=== PATIENT | male | born 1985 | race Caucasian/White ===

== ENCOUNTER 2021-04-22 19:20 | Emergency (ER) | payer MEDICAID ==
[2021-04-22] MEDS ORDERED: Sodium Chloride 0.9% 10 ML Syringe FLUSH PRN (19:52)
[2021-04-22] MEDS ORDERED: VANCOmycin 1.75 GM/350 ML 1.75 GM in Premix Bag 1 BAG IV ONE (19:53)
--- NOTE | 2021-04-22 20:04 | EDM.PDOC ---
ED HPI GENERAL MEDICAL PROBLEM - General Chief Complaint: ENT Problem Stated Complaint: Face pain Time Seen by Provider: 04/22/21 19:46 Source of Information: Reports: Patient - History of Present Illness INITIAL COMMENTS - FREE TEXT/NARRATIVE: Jeff is a 36 y/o male who presents to the ER with complaints of left sided facial swelling that started about 4 days ago. He saw a dentist in [place], [place] and was placed on Amoxicillin on 04/19/21. Today he reported increased swelling and returned to see the dentist again who advised he come to the ER. Dentist does need to extract several teeth and the patient was referred to [facility]. No fevers. Patient reports increased pain and can hardly open his mouth. Swelling had now increased down into the neck region over the last day. - Related Data Allergies Allergy/AdvReac Type Severity Reaction Status Date / Time peanut Allergy Anaphylactic Verified 04/22/21 19:23 Shock Home Meds: Home Meds Clindamycin HCl 300 mg PO TID #30 capsule 04/22/21 [Rx] metroNIDAZOLE [Metronidazole] 500 mg PO TID #30 tablet 04/22/21 [Rx] Review of Systems - Review of Systems Review Of Systems: See Below Constitutional: Reports: No Symptoms Eyes: Reports: No Symptoms Ears: Reports: No Symptoms Nose: Reports: No Symptoms Mouth/Throat: Reports: Pain, Other (Dental infection/abscess) Respiratory: Reports: No Symptoms Cardiovascular: Reports: No Symptoms GI/Abdominal: Reports: No Symptoms Genitourinary: Reports: No Symptoms Musculoskeletal: Reports: No Symptoms Skin: Reports: No Symptoms Neurological: Reports: No Symptoms Psychiatric: Reports: No Symptoms ED EXAM, GENERAL - Physical Exam Exam: See Below General Appearance: Alert, WD/WN, No Apparent Distress (Adult male.) Ears: Normal External Exam, Normal Canal, Hearing Grossly Normal Nose: Normal Inspection Throat/Mouth: Other (Face is swollen on left side of face, slightly firm adn warm to touch. Multiple broken and decayed teeth noted, unable to open mouth very far, +halitosis.) Neck: Other (Swelling palpated from left ceek region down into left neck region.) Respiratory/Chest: No Respiratory Distress, Lungs Clear Cardiovascular: Normal Peripheral Pulses, Regular Rate, Rhythm GI/Abdominal: Normal Bowel Sounds, Soft Extremities: Normal Inspection, Normal Capillary Refill Neurological: Alert, Oriented, CN II-XII Intact, Normal Cognition Psychiatric: Normal Affect Skin Exam: Warm, Dry, Normal Color, No Rash Course - Vital Signs Text/Narrative:: 1944 The patient was seen by the RISK CONTROL ANALYST. Labs ordered. CT ordered of MF and Soft Tissue Neck region sure to extensive swelling. IV started. 2135 Labs reviewed. Note WBC=14.4, Lactic Acid=0.9. CRP=15.0; CMP BUN=22, Field Human Resources Manager=1.23, Azltxyq=039. Radiologist called report to RISK CONTROL ANALYST-CT Soft Tissue Neck=no abscess, but surrounding cellulitis, dental caries present (See final report). Ceftriaxone 2gm IVP ordered. Will place patient on Clindamycin and Flagyl and have him contact [facility] as soon as possible to get in for referral. Written instructions were given and he left the ER in stable condition. - Orders/Labs/Meds Orders: Active Orders 24 hr Category Date Time Status Soft Tissue Neck w Cont [CT] Stat Exams 04/22/21 19:52 Taken CULTURE BLOOD [BC] Stat Lab 04/22/21 20:25 Received CULTURE BLOOD [BC] Stat Lab 04/22/21 20:25 Received Sodium Chloride 0.9% [Saline Flush] Med 04/22/21 19:52 Active 10 ml FLUSH ASDIRECTED PRN Blood Culture x2 Reflex Set [OM.PC] Stat Oth 04/22/21 19:52 Ordered Saline Lock Insert [OM.PC] Stat Oth 04/22/21 19:52 Ordered Medication Orders Sodium Chloride (Sodium Chloride 0.9% 10 Ml Syringe) 10 ml FLUSH ASDIRECTED PRN PRN Reason: Keep Vein Open Labs: Laboratory Tests 04/22/21 04/22/21 04/22/21 Range/Units 20:25 20:25 20:25 WBC 14.4 H (4.0-10.2) K/uL RBC 4.60 (4.33-5.41) M/uL Hgb 15.0 (13.1-16.8) g/dL Hct 43.6 (39.0-49.0) % MCV 94.8 (84.0-98.0) fL MCH 32.6 (28.2-33.3) pg MCHC 34.4 (31.7-36.0) g/dL RDW 13.3 (11.2-14.1) % Plt Count 369 H (150-350) K/uL Neut % (Auto) 75.3 (45.0-80.0) % Lymph % (Auto) 14.7 (10.0-50.0) % [place] % (Auto) 9.2 (2.0-14.0) % Eos % (Auto) 0.7 (0.0-5.0) % Baso % (Auto) 0.1 (0.0-2.0) % Neut # (Auto) 10.83 H (1.40-7.00) K/uL Lymph # (Auto) 2.11 (0.50-3.50) K/uL [place] # (Auto) 1.32 H (0.00-1.00) K/uL Eos # (Auto) 0.10 (0.00-0.50) K/uL Baso # (Auto) 0.02 (0.00-0.20) K/uL Sodium 135 L (136-145) mmol/L Potassium 4.3 (3.5-5.1) mmol/L Chloride 98 (98-107) mmol/L Carbon Dioxide 24.5 (21.0-32.0) mmol/L Anion Gap 16.8 H (7-15) meq/L BUN 22 H (7-18) mg/dL Creatinine 1.23 H (0.51-1.17) mg/dL Est Cr Clr Drug Dosing TNP Estimated GFR (MDRD) > 60 mL/min Glucose 340 H (70-99) mg/dL Lactic Acid 0.9 (0.4-2.0) mmol/L Calcium 9.1 (8.5-10.1) mg/dL Total Bilirubin 0.5 (0.2-1.0) mg/dL AST 16 (15-37) U/L ALT 29 (12-78) U/L Alkaline Phosphatase 175 H (46-116) IU/L C-Reactive Protein 15.0 H (<=0.9) mg/dL Total Protein 8.1 (6.4-8.2) g/dL Albumin 3.2 L (3.4-5.0) g/dL Meds: Medications Generic Name Dose Route Start Last Admin Trade Name Freq PRN Reason Stop Dose Admin Sodium Chloride 10 ml 04/22/21 19:52 Sodium Chloride 0.9% 10 Ml Syringe FLUSH ASDIRECTED PRN Keep Vein Open Discontinued Medications Generic Name Dose Route Start Last Admin Trade Name Augie PRN Reason Stop Dose Admin Ceftriaxone Sodium 2 gm 04/22/21 21:23 04/22/21 21:32 Ceftriaxone 2 Gm Vial IVPUSH 04/22/21 21:24 2 gm ONETIME ONE Administration Vancomycin HCl 1.75 gm/ Premix 350 mls @ 200 mls/hr 04/22/21 19:53 IV 04/22/21 21:37 STAT ONE Ceftriaxone Sodium 2 gm/ 100 mls @ 200 mls/hr 04/22/21 20:09 Sodium Chloride IV 04/22/21 20:38 ONETIME ONE Iopamidol 100 ml 04/22/21 20:29 04/22/21 20:59 Iopamidol 612 Mg/Ml 100 Ml Bottle IVPUSH 04/22/21 20:30 100 ml ONETIME ONE Administration - Radiology Interpretation Free Text/Narrative:: CT Soft Tissue Neck-no drainable abscess, surrounding cellulitis (See final report) Departure - Departure Time of Disposition: 21:39 Disposition: Home, Self-Care 01 Clinical Impression: Dental infection, Dental caries, Abscessed tooth, Facial cellulitis - Discharge Information Prescriptions: Clindamycin HCl 300 mg PO TID #30 capsule metroNIDAZOLE [Metronidazole] 500 mg PO TID #30 tablet Instructions: Dental Abscess, Cellulitis, Adult Forms: ED Department Discharge Additional Instructions: -Clindamycin 300mg oral every 8 hours x 10 days #30(Rx) -Metronidiazole 500mg oral 3x day for 10 days #30(Rx) -Continue ibuprofen/acetaminophen as needed for pain -Follow up with your dentist for further meds -Contact the [facility] Surgeon office on Sunday -Return to the ER as needed or see your PCP - Problem List & Annotations (1) Abscessed tooth SNOMED Code(s): 378006716 Code(s): K04.7 - PERIAPICAL ABSCESS WITHOUT SINUS Status: Acute (2) Dental caries SNOMED Code(s): 80425570 Code(s): K02.9 - DENTAL CARIES, UNSPECIFIED Status: Acute (3) Dental infection SNOMED Code(s): 049185963 Code(s): K04.7 - PERIAPICAL ABSCESS WITHOUT SINUS Status: Acute (4) Facial cellulitis SNOMED Code(s): 514758524 Code(s): L03.211 - CELLULITIS OF FACE Status: Acute Annotation/Comment:: Labs done. Note WBC=14.4, CRP=15.0, afebrile. Ceftriaxone 2gm IVP. Will send home on Clindamycin and Flagyl. - Problem List Review Problem List Initiated/Reviewed/Updated: Yes - My Orders Last 24 Hours: My Active Orders 04/22/21 19:52 Soft Tissue Neck w Cont [CT] Stat Sodium Chloride 0.9% [Saline Flush] 10 ml FLUSH ASDIRECTED PRN Blood Culture x2 Reflex Set [OM.PC] Stat Saline Lock Insert [OM.PC] Stat 04/22/21 20:25 CULTURE BLOOD [BC] Stat CULTURE BLOOD [BC] Stat - Assessment/Plan Last 24 Hours: My Active Orders 04/22/21 19:52 Soft Tissue Neck w Cont [CT] Stat Sodium Chloride 0.9% [Saline Flush] 10 ml FLUSH ASDIRECTED PRN Blood Culture x2 Reflex Set [OM.PC] Stat Saline Lock Insert [OM.PC] Stat 04/22/21 20:25 CULTURE BLOOD [BC] Stat CULTURE BLOOD [BC] Stat Plan: See above
[2021-04-22] MEDS ORDERED: cefTRIAXone 2 GM in Sodium Chloride 0.9% 100 ML IV ONE (20:09)
[2021-04-22] MEDS: Iopamidol 612 MG/ML 100 ML Bottle IVPUSH ONE (20:59)
[2021-04-22 21:05] LABS: ANION GAP 16.8 meq/L (7-15); CHLORIDE,CL 98 mmol/L (98-107); SODIUM,NA 135 mmol/L (136-145)
[2021-04-22] MEDS: cefTRIAXone 2 GM Vial IVPUSH ONE (21:32)
== END 2021-04-22 23:13 | disposition home or self-care (01) ==
LOC: LL.ED 19:20
DX: L03.211 Cellulitis of face (principal); K04.7 Periapical abscess without sinus; K02.9 Dental caries, unspecified; Z91.010 Allergy to peanuts; Z79.899 Other long term (current) drug therapy
CPT/HCPCS: 36415; 70491; 80053; 83605; 85025; 86140; 87040; 96374; 99283; 99284-25; J0696; Q9967